=== PATIENT | male | born 1945 | race Caucasian/White ===

== ENCOUNTER → 2018-10-10 | Outpatient (CLI) | payer MEDICARE ==
--- NOTE | 2018-10-10 15:29 | XR ---
EXAMINATION TYPE: XR lumbar spine 2 or 3V DATE OF EXAM: 10/10/2018 CLINICAL HISTORY: Left-sided lower back pain with occasional radiculopathy. Known disc herniation at L4-L5. TECHNIQUE: Frontal and lateral images of the lumbar spine are obtained. COMPARISON: 09/26/2016 lumbar spine MRI FINDINGS: There are 5 lumbar type vertebral bodies identified. The lumbar spine shows satisfactory vertebral body heights. There is grade 1 anterolisthesis of L4 on L5 as seen on the prior MRI of 2016 . Facet arthropathy is seen at L4-L5 and L5-S1. Small anterior osteophytes are present at L3-L5. Mild atherosclerosis of the abdominal aorta is noted. The overlying soft tissue appears unremarkable. IMPRESSION: 1. Persistent grade 1 anterolisthesis of L4 on L5 unchanged from the prior MRI of 2016. The known lar ge disc herniation resulting in spinal canal stenosis at L4-L5 is not seen radiographically and could be compared to the prior with MRI of the lumbar spine. 2. Mild multilevel degenerative disc disease of the lumbar spine. No vertebral body height loss.
--- NOTE | 2018-10-10 16:07 | XR ---
EXAMINATION TYPE: XR hand complete bilateral DATE OF EXAM: 10/10/2018 CLINICAL HISTORY: Bilateral hand pain and swelling after increased activity. M 19.149 osteoarthritis hands. TECHNIQUE: Frontal, lateral and oblique images of the bilateral hands were obtained. COMPARISON: None. FINDINGS: There is no acute fracture/dislocation evident in either hand. Right: Few osseous cysts are seen of the distal aspect of the middle phalanges of the first through t hird digits. Very small marginal osteophytes are seen of the distal interphalangeal joints with joint space narrowing. Minimal degenerative change demonstrated as very small osteophytes are present at t he first carpometacarpal joint. Small vessel atherosclerosis is noted. Carpal carpal interspaces are maintained. Left: Small marginal osteophytes and joint space narrowing are seen of the distal interphalangeal juan daniel nts and first carpometacarpal joint. Few osseous cysts are seen within the lunate bone and distal thi rd phalanx, likely degenerative in nature. IMPRESSION: There is no acute fracture or dislocation in either hand. Mild bilateral arthropathy wit h distribution compatible with osteoarthritis.
== END | disposition home or self-care (01) ==
LOC: RADXRMAIN 14:36
PROVIDERS: ATTEND Internal Medicine
DX: M43.16 Spondylolisthesis, lumbar region (principal); M51.36 Other intervertebral disc degeneration, lumbar region; M19.042 Primary osteoarthritis, left hand; M19.041 Primary osteoarthritis, right hand
CPT/HCPCS: 72100

== ENCOUNTER → 2019-09-16 | Outpatient (CLI) | payer MEDICARE ==
--- NOTE | 2019-09-16 16:31 | MR ---
EXAMINATION TYPE: MR lumbar spine wo con DATE OF EXAM: 09/16/2019 COMPARISON: MRI dated 09/26/2016 HISTORY: Spondylosis lumbosacral region, pain TECHNIQUE: Multiplanar, multisequence images of the lumbar spine were acquired. FINDINGS: The lumbar spine vertebral bodies demonstrate normal vertebral body heights. Grade 1 hortencia listhesis of L4 on L5 is new from the prior, likely on a degenerative basis.. Multilevel disc desicca tion is seen. Endplate change is again seen at L5 as noted on the prior from degenerative disc diseas e. There are possible bilateral renal sinus cysts. Kidneys are incompletely visualized. L1-L2: Disc desiccation without spinal canal stenosis or neural foraminal narrowing. L2-L3: Broad-based disc bulge and central annular tear resulting in mild bilateral neural foraminal n arrowing in combination with facet arthropathy. No spinal canal stenosis. L3-L4: Mild facet arthropathy and broad-based disc bulge are seen with minimal bilateral neural charlotte inal narrowing. No spinal canal stenosis. L4-L5: Disc uncovering from the anterolisthesis. Subtle left foraminal disc herniation on axial image 8 superimposed on a broad-based disc bulge. Mild to moderate left neural foraminal narrowing and mil d right neural foraminal narrowing are seen. There is also mild spinal canal stenosis as there is lig amentum flavum buckling and facet arthropathy. L5-S1: Broad-based disc bulge and facet arthropathy without spinal canal stenosis nor neural foramina l narrowing. IMPRESSION: 1. Presumed surgical intervention at L4-L5 with partial-thickness resection of the previously seen ex truded disc fragment. There remains a small left foraminal disc herniation and mild to moderate left neural foraminal narrowing at this level. New grade 1 anterolisthesis is seen at L4-L5, likely on a d egenerative basis. 2. Slight progression of degenerative disc disease in comparison to the prior 2015, overall mild as d etailed above.
== END | disposition home or self-care (01) ==
LOC: RADMRIMAIN 13:18
PROVIDERS: ATTEND Internal Medicine
DX: M48.061 Spinal stenosis, lumbar region without neurogenic claudication (principal); M51.26 Other intervertebral disc displacement, lumbar region; M43.16 Spondylolisthesis, lumbar region; M51.36 Other intervertebral disc degeneration, lumbar region
CPT/HCPCS: 72148